=== PATIENT | male | born 1955 | race Caucasian/White ===

== ENCOUNTER 2018-06-25 06:58 | Day surgery (SDC) | payer BC ==
[2018-06-25] MEDS ORDERED: LIDOCAINE 2% MDV (20MG/ML) 20ML VIAL IV ONE (06:59)
[2018-06-25] MEDS ORDERED: PROPOFOL 10 MG/ML VIAL IV ONE (06:59)
--- NOTE | 2018-06-26 08:50 | Operative Note ---
DATE OF SURGERY: 06/25/18 OPERATION: COLONOSCOPY with cold snare polypectomy. PREOPERATIVE DIAGNOSIS: Personal history of colon polyps. POSTOPERATIVE DIAGNOSIS: Mild radiation proctitis, sigmoid diverticulosis, ascending colon polyp. PREPARATION QUALITY: Good to excellent. ESTIMATED BLOOD LOSS: Minimum. SPECIMENS: Ascending colon. COMPLICATIONS: None apparent. PROCEDURE: After informed consent was obtained from the patient, she was placed in the left lateral decubitus position in the endoscopy suite, sedated and monitored by the department of anesthesia. Digital rectal exam was unremarkable. A well-lubricated HME401 colonoscope was inserted into the rectum and advanced to the cecum. Preparation quality was good to excellent. The cecum, cecal bulb, ileocecal valve, and appendiceal orifice were unremarkable. The ascending colon revealed a 3-4 mm sessile polyp removed with a cold snare. Polyp was retrieved. Minimal bleeding was noted. The remainder of the ascending colon, transverse colon, and descending colon were unremarkable. The sigmoid colon did reveal mild diverticular changes. No polyps or inflammation seen. The rectum demonstrated some very mild angiodysplastic changes suggestive of mild radiation proctitis. The rectum was unremarkable otherwise in forward and in J-turn views. The endoscope was straightened, the rectal ampulla deflated, and the endoscope was removed. RECOMMENDATIONS: I would suggest the patient follow a high-fiber diet. Recommend a repeat exam in 5 years. As always, thank you for allowing me to participate in the healthcare of your patients. CC: DO LIBERTY Lakhani
== END 2018-06-25 08:30 | disposition home or self-care (01) ==
LOC: HOP 06:58
PROVIDERS: ATTEND Internal Medicine Gastroenterology
DX: Z12.11 Encounter for screening for malignant neoplasm of colon (principal); Z86.010 Personal history of colon polyps; D12.2 Benign neoplasm of ascending colon; K62.7 Radiation proctitis; K57.30 Diverticulosis of large intestine without perforation or abscess without bleeding; I10 Essential (primary) hypertension